=== PATIENT | male | born 1960 ===

== ENCOUNTER 2023-01-25 16:39 | Emergency (ER) | payer MEDICAID ==
[~2023-01-25] VITALS: Ht 175.3 cm; Wt 66.0 kg
[2023-01-25 18:34] LABS: BASOPHILS % (AUTO) 0.6 % (0-1); EOSINOPHILS # (AUTO) 0.3 X10'3 (0-0.9); EOSINOPHILS % (AUTO) 3.9 % (0-6); HEMATOCRIT 41.7 % (42.0-52.0); HEMOGLOBIN 14.2 g/dl (14.0-17.9); LYMPHOCYTES # (AUTO) 1.7 X10'3 (1.1-4.8); LYMPHOCYTES % (AUTO) 25.4 % (21-51); MEAN CORPUSCULAR HEMOGLOBIN 30.3 PG (27.0-31.0); MEAN CORPUSCULAR HGB CONC 34.1 g/dL (33.0-36.5); MEAN CORPUSCULAR VOLUME 88.8 FL (78-98); MONOCYTES # (AUTO) 0.9 X10'3 (0-0.9); MONOCYTES % (AUTO) 13.2 % (2-12); NEUTROPHILS # (AUTO) 3.9 X10'3 (1.8-7.7); NEUTROPHILS % (AUTO) 56.9 % (42-75); PLATELET COUNT 207 X10'3 (140-440); RED CELL DISTRIBUTION WIDTH 13.7 % (11.5-14.5); WHITE BLOOD COUNT 6.8 X10'3 (4.5-11.0)
[2023-01-25 18:43] LABS: BILIRUBIN,URINE NEGATIVE (Neg); CLARITY,URINE CLEAR (Clear); COLOR,URINE YELLOW (Yellow); GLUCOSE, URINE NEGATIVE (Neg); KETONES,URINE NEGATIVE (Neg); LEUKOCYTE ESTERASE ,URINE NEGATIVE (Neg); NITRITES, URINE NEGATIVE (Neg); OCCULT BLOOD,URINE NEGATIVE (Neg); PH,URINE 6.5 (4.8-8.0); PROTEIN,URINE NEGATIVE (Neg); UROBILINOGEN,URINE 0.2 E.U/dL (0.2-1.0)
[2023-01-25 18:46] LABS: URINE AMPHETAMINE SCREEN NEGATIVE (Neg); URINE BARBITUATE SCREEN NEGATIVE (Neg); URINE BENZODIAZEPINES SCREEN NEGATIVE (Neg); URINE CANNABINOID SCREEN NEGATIVE (Neg); URINE COCAINE SCREEN NEGATIVE (Neg); URINE METHADONE SCREEN NEGATIVE (Neg); URINE OPIATE SCREEN NEGATIVE (Neg); URINE PHENCYCLIDINE SCREEN NEGATIVE (Neg)
[2023-01-25 18:47] LABS: ALANINE AMINOTRANSFERASE 21 U/L (12-78); ALBUMIN 3.5 G/DL (3.4-5.0); ALKALINE PHOSPHATASE 74 IU/L (46-116); ANION GAP 8 (8-16); ASPARTATE AMINO TRANSFERASE 21 U/L (10-37); BILIRUBIN,TOTAL 0.3 MG/DL (0.1-1.0); BLOOD UREA NITROGEN 21 MG/DL (7-18); CHLORIDE 104 MMOL/L (99-107); CREATININE 1.05 MG/DL (0.60-1.10); ETHANOL < 0.010 GM/DL (0.0-0.010); GLUCOSE 93 MG/DL (70-104); POTASSIUM 4.3 MMOL/L (3.5-5.1); SODIUM 141 MMOL/L (135-145); TOTAL CARBON DIOXIDE 28.7 MMOL/L (24-32); TOTAL PROTEIN 7.1 G/DL (6.4-8.2); eCRCL 68 ML/MIN; eGFR 72 ML/MIN
[2023-01-25 18:53] LABS: UA COLLECTION TYPE CLN CATCH MIDSTREAM
[2023-01-25 19:25] LABS: COVID19 ANTIGEN BINAX NEGATIVE (NEGATIVE)
--- NOTE | 2023-01-25 20:22 | NUR ---
Packet sent to [facility]
--- NOTE | 2023-01-25 20:44 | NUR ---
The patient has been moved to bed 22 from the main ER. He has considerable TD both upper extremities. He stated he did not like [facility] and how they were treating him. Apparently he thought they were trying to kill his dog. The patient does report voices telling him that they are going to kill him and his dog. He also stated that Fredi is talking to him. He is a poor historian. He is from [facility] and is on conservatorship. He currently denies that he is suicidal or that he has been trying to harm any one. He stated that he did not feel that he needed medications but was informed that he would need to take his medications. Contacted [facility] and requested H&P, notes and current medication list.
--- NOTE | 2023-01-25 21:17 | NUR ---
Spoke with [facility] at 21:15. Patient is a [facility] client and will be placed there.
[2023-01-25] MEDS ORDERED: DOCU-395 PO (21:42)
[2023-01-25] MEDS ORDERED: FAMO-129 PO (21:42)
[2023-01-25] MEDS ORDERED: LORA-269 PO ×2 (21:42→21:48)
[2023-01-25] MEDS ORDERED: DIVA-81 PO (21:42)
[2023-01-25] MEDS ORDERED: MULT-1085 PO (21:48)
[2023-01-25] MEDS ORDERED: AMAN100C20 PO (21:48)
[2023-01-25] MEDS ORDERED: RISP3TAB63 PO (21:48)
[2023-01-25] MEDS ORDERED: DIVA500T4 PO (21:48)
[2023-01-25] MEDS ORDERED: RISP1TAB13 PO (21:48)
--- NOTE | 2023-01-25 21:53 | NUR ---
Packet sent to [facility] so they could place him.
--- NOTE | 2023-01-25 22:02 | NUR ---
The patient appears to be sleeping
--- NOTE | 2023-01-26 00:11 | NUR ---
The patient up to use the bathroom
[2023-01-26] MEDS: divalproex sod 250mg ER (24-hour) tablet PO SCH ×4 (00:24→20:06)
[2023-01-26] MEDS ORDERED: LORazepam 1 MG tablet PO PRN (00:24)
[2023-01-26] MEDS: famotidine 20mg tablet PO SCH ×2 (00:28→20:06)
[2023-01-26] MEDS ORDERED: divalproex sod 250mg ER (24-hour) tablet PO ONE (00:40)
[2023-01-26] MEDS: risperiDONE 0.5mg tablet PO SCH ×5 (00:45→20:06)
[2023-01-26] MEDS: LORazepam 0.5 MG tablet PO PRN ×3 (00:56→20:06)
--- NOTE | 2023-01-26 01:01 | NUR ---
The patient given medications as ordered. He was compliant and took the medications without incident.
--- NOTE | 2023-01-26 02:02 | NUR ---
Call to CSU, [facility] [phone]. They are accepting the patient to their unit and spoke with staff member, Elver. Their expectation that the patient will be transported there via ambulance. Address is [address] Spoke with ER charge and sustainable communities designer will attempt to arrange if ambulance available.
--- NOTE | 2023-01-26 02:48 | NUR ---
Amended number for [facility], [facility] [phone]
--- NOTE | 2023-01-26 03:08 | NUR ---
The patient appears to be sleeping
--- NOTE | 2023-01-26 05:05 | NUR ---
The patient appears to be sleeping
--- NOTE | 2023-01-26 06:31 | NUR ---
Patient sleeping in bed. Respirations are even and nonlabored.
[2023-01-26] MEDS: docusate sod 250mg capsule PO SCH (08:00)
[2023-01-26] MEDS: amantadine 100 MG capsule PO SCH ×2 (08:00→20:06)
[2023-01-26] MEDS: LORazepam 0.5 MG tablet PO SCH (09:17)
[2023-01-26 09:39] VITALS: PULSE 73; RESP 16; O2SAT 98
--- NOTE | 2023-01-26 10:44 | NUR ---
Patient laying on right side sleeping. No S/S of distress noted. Respirations are even and equal.
--- NOTE | 2023-01-26 10:51 | NUR ---
Patient up to the restroom.
[2023-01-26] MEDS ORDERED: magnesium hydroxide 30ml (MOM) UD suspension PO ONE (11:10)
[2023-01-26] MEDS: albuterol 2.5 MG/3 ML nebule NEB PRN ×2 (11:39→19:13)
[2023-01-26 11:50] VITALS: PULSE 78; PULSE 89; RESP 18; O2SAT 98; O2SAT 99
--- NOTE | 2023-01-26 13:46 | NUR ---
Patient is sleeping in bed. Respirations are even and nonlabored. Blayne LEE, communicated that [facility] was arranging transport, but drivers' cash clerk today is sick, so they will try to arrange transport for tomorrow.
[2023-01-26 13:48] VITALS: PULSE 73; RESP 15; O2SAT 95
--- NOTE | 2023-01-26 15:56 | NUR ---
Patient sleeping on right side. Respirations are even and nonlabored.
--- NOTE | 2023-01-26 17:26 | NUR ---
Patient lying in bed watching t.v. No S/S of distress noted.
[2023-01-26 19:15] VITALS: PULSE 72; RESP 16; O2SAT 97
--- NOTE | 2023-01-26 19:15 | NUR ---
The patient denies that he is having thoughts to harm anyone or himself. He does not present as agitated. He has significant TD. Lungs are course with wheezes and RT is at the bedside giving him a treatment. He was made aware that [place] would go [place] and he was glad that he was going back.
[2023-01-26 19:22] VITALS: PULSE 74; RESP 16
--- NOTE | 2023-01-26 20:01 | NUR ---
The patient is resting on his bed.
--- NOTE | 2023-01-26 20:38 | NUR ---
The patient appears to be sleeping
--- NOTE | 2023-01-26 22:25 | NUR ---
The patient appears to be sleeping
--- NOTE | 2023-01-27 00:06 | NUR ---
The patient appears to be sleeping
--- NOTE | 2023-01-27 02:04 | NUR ---
The patient appears to be sleeping
--- NOTE | 2023-01-27 04:27 | NUR ---
The patient appears to be sleeping
[2023-01-27 05:48] VITALS: BP 118/52; TEMP 97.3
--- NOTE | 2023-01-27 06:06 | NUR ---
Spoke with [facility] CSU and it was there understanding that there was no firm plan in place to transport the patient back to [facility] but stated that after staff arrived after 0830 they would develop a transport plan
--- NOTE | 2023-01-27 07:21 | NUR ---
The patient appears to be sleeping
[2023-01-27] MEDS: docusate sod 250mg capsule PO SCH (07:36)
[2023-01-27] MEDS: LORazepam 0.5 MG tablet PO SCH (07:36)
[2023-01-27] MEDS: risperiDONE 0.5mg tablet PO SCH (07:36)
[2023-01-27] MEDS: amantadine 100 MG capsule PO SCH (07:36)
[2023-01-27] MEDS: divalproex sod 250mg ER (24-hour) tablet PO SCH (07:36)
--- NOTE | 2023-01-27 08:28 | NUR ---
Received call from Reva Pantoja from [facility] and a team is coming to pick him up and will be here in approximately 4 hours.
--- NOTE | 2023-01-27 08:50 | NUR ---
The patient is resting on his bed after eating his breakfast
[2023-01-27 09:03] VITALS: PULSE 74; RESP 16; O2SAT 95
--- NOTE | 2023-01-27 10:24 | NUR ---
The patient up to the bathroom to wash up.
--- NOTE | 2023-01-27 12:17 | NUR ---
The patient has been sitting on his bed, eating his lunch and eating his lunch
[2023-01-27] MEDS ORDERED: LORazepam 1 MG tablet PO STA (13:10)
--- NOTE | 2023-01-27 13:11 | NUR ---
The patient is repeatedly kneeling at the bedside praying since he found out he was leaving. Increased anxiety and Dr. Hastings aware and orders received.
[2023-01-27 13:25] VITALS: PULSE 74; RESP 18
== END 2023-01-27 13:27 ==
LOC: ER 16:40
DX: F20.9 Schizophrenia, unspecified (principal); Z20.822 Contact with and (suspected) exposure to COVID-19; Z88.0 Allergy status to penicillin; Z88.8 Allergy status to other drugs, medicaments and biological substances; Z79.899 Other long term (current) drug therapy
CPT/HCPCS: 36415; 80053; 80305; 80320; 81003; 85025; 87811; 94640; 94760; 99285